=== PATIENT | male | born 1965 | race Caucasian/White ===

== ENCOUNTER 2018-08-19 16:40 | Emergency (ER) | payer OTHER ==
[2018-08-19 17:02] VITALS: TEMP 97.5
--- NOTE | 2018-08-19 17:22 | ED.PDOC ---
History of Present Illness - General Chief Complaint: Back Pain or Injury Stated Complaint: back pain Time Seen by Provider: 08/19/18 17:07 Source: patient Exam Limitations: no limitations - History of Present Illness Initial Comments: the patient is a 53-year-old male presenting to the emergency room secondary to severe low back pain with primarily left lower extremity sciatica. Pain started according to him after a work injury a little more than a month ago. He has seen his primary care doctor for it and he has had a MRI done earlier this week for the pain. 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 He has been receiving Toradol shots with his primary care doctor at this point. He has not yet started any physical therapy. No urinary incontinence. No real weakness of the leg just mainly shooting pains. He does have some mild muscle spasm adjacent to L5 on the left. There is mild tenderness to palpation there as well. No gross deformity. Timing/Duration: unsure Severity: severe Improving Factors: nothing Worsening Factors: movement Associated Symptoms: denies symptoms Allergies/Adverse Reactions: Allergies NO KNOWN ALLERGY Allergy (Verified 10/07/15 17:45) Home Medications: Ambulatory Orders Alprazolam [Xanax] 1 mg PO DAILY 10/07/15 Levetiracetam [Keppra] 500 mg PO BID #28 tab 10/07/15 Cyclobenzaprine HCl [Flexeril] 5 mg PO TID PRN #30 tab 08/19/18 Gabapentin 300 mg PO Q8HR #30 cap 08/19/18 predniSONE [Prednisone] 20 mg PO DAILY #5 tab 08/19/18 Review of Systems - Review of Systems Constitutional: States: no symptoms reported EENTM: States: no symptoms reported Respiratory: States: no symptoms reported Cardiology: States: no symptoms reported Gastrointestinal/Abdominal: States: no symptoms reported Genitourinary: States: no symptoms reported Musculoskeletal: States: back pain Skin: States: no symptoms reported Neurological: States: see HPI, paresthesia Endocrine: States: no symptoms reported All other Systems: No Change from Baseline Past Medical History (General) - Patient Medical History Hx Diabetes: No - Vaccination History Hx Tetanus, Diphtheria Vaccination: Yes - Within last 5 years Hx Influenza Vaccination: No Hx Pneumococcal Vaccination: No - Social History Hx Alcohol Use: Yes - occ. Hx Substance Use: No Hx Substance Use Treatment: No Hx Depression: No - Triage Comment ED Triage Comment: Patient states he has been going heavy lifting at work. Strained his back over a month ago and the pain has been getting worse. Family Medical History - Family History Mother Family History: Unknown Living Status: Still Living Physical Exam - Physical Exam General Appearance: Alert, No apparent distress, Other - poor eye contact. Eye Exam: bilateral normal Ears, Nose, Throat: hearing grossly normal Respiratory: no respiratory distress, no accessory muscle use Cardiovascular/Chest: normal peripheral pulses, no edema Peripheral Pulses: radial,right: 2+, radial,left: 2+ Rectal Exam: deferred Back Exam: other - see history present illness. The patient is very tall and thin. 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 No obvious bruising. Comments: Vital Signs - 24 hr 08/19/18 08/19/18 16:40 17:01 Temperature 97.5 F L Pulse Rate [ 103 H monitor] Respiratory 20 20 Rate Blood Pressure 153/100 [Left Arm] O2 Sat by Pulse 99 Oximetry Progress - Progress Progress: 08/19/18 17:24 the patient's a 53-year-old male presenting to the emergency room with low back pain of more than a month's duration with left lower extremity sciatica. he does not appear to have any loss of sensation or weakness.. Pain does appear to be fairly severe. No incontinence though he has had an accident secondary to not being able to get to the bathroom in time. This is apparently due to a work-related injury. 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 Minimal canal stenosis. The patient has missed the last 2 days of work due to pain and he will likely need to miss the rest of the week. The patient is going to be placed on gabapentin for neuropathic pain and prednisone for the next 5 days as well to help reduce inflammation. He can apply topical heat in the form of icy hot or Biofreeze over the area as well as a heat pad. He will also be written for some Flexeril for as needed use to help reduce any muscle spasm of the paraspinal muscles that may be making the sciatica worse. He does need follow back up with his primary care doctor towards the end of the week to see if he can be cleared to resume work with at least some restrictions. His symptoms do seem to be fairly severe. If he is not making progress, then physical therapy or neurosurgery evaluation may be warranted in the near future. 08/19/18 17:32 Departure - Departure Clinical Impression: Sciatica associated with disorder of lumbar spine Disposition: Discharge to Home or Self Care Condition: Fair Departure Forms: ED Discharge - Pt. Copy, Patient Portal Self Enrollment Instructions: DI for Back Pain With Sciatica Diet: regular diet Activity: other Referrals: HERMELINDO FLORES [Primary Care Provider] - 1-5 Days Prescriptions: Gabapentin 300 mg PO Q8HR #30 cap Cyclobenzaprine HCl [Flexeril] 5 mg PO TID PRN #30 tab PRN Reason: Muscle Spasms predniSONE [Prednisone] 20 mg PO DAILY #5 tab Home Medications: Ambulatory Orders Alprazolam [Xanax] 1 mg PO DAILY 10/07/15 Levetiracetam [Keppra] 500 mg PO BID #28 tab 10/07/15 Cyclobenzaprine HCl [Flexeril] 5 mg PO TID PRN #30 tab 08/19/18 Gabapentin 300 mg PO Q8HR #30 cap 08/19/18 predniSONE [Prednisone] 20 mg PO DAILY #5 tab 08/19/18 Additional Instructions: the patient's a 53-year-old male presenting to the emergency room with low back pain of more than a month's duration with left lower extremity sciatica. This is apparently due to a work-related injury. 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 Minimal canal stenosis. The patient has missed the last 2 days of work due to pain and he will likely need to miss the rest of the week. The patient is going to be placed on gabapentin for neuropathic pain and prednisone for the next 5 days as well to help reduce inflammation. He can apply topical heat in the form of icy hot or Biofreeze over the area as well as a heat pad. He will also be written for some Flexeril for as needed use to help reduce any muscle spasm of the paraspinal muscles that may be making the sciatica worse. He does need follow back up with his primary care doctor towards the end of the week to see if he can be cleared to resume work with at least some restrictions. His symptoms do seem to be fairly severe. If he is not making progress, then physical therapy or neurosurgery evaluation may be warranted in the near future. he does need to be careful with the Flexeril and the gabapentin as they can be increasingly sedating when added on top of his routine home medications.
[2018-08-19 17:29] VITALS: BP 155/96; O2SAT 100
[2018-08-19] MEDS ORDERED: HYDROcodone 7.5MG/APAP 325MG 1 EA TAB PO ONE (17:29)
[2018-08-19] MEDS ORDERED: GABAPENTIN 300 MG CAP PO ONE (17:29)
[2018-08-19] MEDS ORDERED: predniSONE 20 MG TAB PO ONE (17:29)
== END 2018-08-19 17:45 | disposition home or self-care (01) ==
LOC: ER 16:40
DX: M54.42 Lumbago with sciatica, left side (principal); M48.061 Spinal stenosis, lumbar region without neurogenic claudication; Z87.828 Personal history of other (healed) physical injury and trauma

== ENCOUNTER 2018-08-23 00:31 | Emergency (ER) | payer OTHER ==
--- NOTE | 2018-08-23 00:53 | ED.PDOC ---
History of Present Illness - General Chief Complaint: General Stated Complaint: leg weakness Time Seen by Provider: 08/23/18 00:49 Exam Limitations: intoxication - alcohol - History of Present Illness Initial Comments: Julio Buckley 53 y/o male under police custody after he was booked for DWI and was being brought [facility] complained that his legs are weak.event security officer stated he is able to ambulate.No history of accidental fall or head injuries. Timing/Duration: 1-3 hours Severity: mild Improving Factors: nothing Worsening Factors: nothing Associated Symptoms: other - drunk Allergies/Adverse Reactions: Allergies NO KNOWN ALLERGY Allergy (Verified 10/07/15 17:45) Home Medications: Ambulatory Orders Alprazolam [Xanax] 1 mg PO BID 10/07/15 Cyclobenzaprine HCl [Flexeril] 5 mg PO TID PRN #30 tab 08/19/18 Gabapentin 300 mg PO Q8HR #30 cap 08/19/18 predniSONE [Prednisone] 20 mg PO DAILY #5 tab 08/19/18 Review of Systems - Review of Systems Neurological: States: see HPI, weakness - both legs as reported by patien but able to stand on both legs w/o falling and able to sit on the exam table All other Systems: Reviewed and Negative, No Change from Baseline Past Medical History (General) - Patient Medical History Hx Diabetes: No - Vaccination History Hx Tetanus, Diphtheria Vaccination: Yes - Within last 5 years Hx Influenza Vaccination: No Hx Pneumococcal Vaccination: No - Social History Hx Alcohol Use: Yes - occ. Hx Substance Use: No Hx Substance Use Treatment: No Hx Depression: No Family Medical History - Family History Mother Family History: Unknown Living Status: Still Living Physical Exam - Physical Exam General Appearance: Alert, Comfortable, No apparent distress, Other - alcoholic breath Eye Exam: bilateral normal Ears, Nose, Throat: hearing grossly normal, normal ENT inspection, normal pharynx Neck: non-tender, supple, normal inspection Respiratory: chest non-tender, lungs clear, normal breath sounds Cardiovascular/Chest: normal peripheral pulses, regular rate, rhythm, no murmur Peripheral Pulses: radial,right: 2+, radial,left: 2+ Gastrointestinal/Abdominal: normal bowel sounds, non tender, soft Back Exam: no CVA tenderness, no vertebral tenderness Extremity: no pedal edema, no calf tenderness Neurologic: alert - talking to police officers DTR: 2+: Brachioradialis, left, Brachioradialis, right, Patellar, left, Patellar , right Skin Exam: normal color, warm/dry Progress - Progress Progress: 08/23/18 00:59 Vital Signs - 8 hr 08/23/18 00:46 Temperature 97.9 F Pulse Rate [ 100 H left] Respiratory 20 Rate Blood Pressure 140/90 [left] O2 Sat by Pulse 98 Oximetry 08/23/18 01:01 event security officer stated no need for ETOH level just medical clearance Departure - Departure Clinical Impression: Medical clearance for incarceration, Alcohol ingestion Time of Disposition: 01:00 Disposition: Skilled Nursing Condition: Fair Departure Forms: ED Discharge - Pt. Copy, Patient Portal Self Enrollment Referrals: HERMELINDO FLORES [Primary Care Provider] - 1-2 Weeks Home Medications: Ambulatory Orders Alprazolam [Xanax] 1 mg PO BID 10/07/15 Cyclobenzaprine HCl [Flexeril] 5 mg PO TID PRN #30 tab 08/19/18 Gabapentin 300 mg PO Q8HR #30 cap 08/19/18 predniSONE [Prednisone] 20 mg PO DAILY #5 tab 08/19/18
[2018-08-23 00:55] VITALS: BP 140/90; TEMP 97.9; O2SAT 98
== END 2018-08-23 01:15 ==
LOC: ER 00:31
DX: Z02.89 Encounter for other administrative examinations (principal); F10.99 Alcohol use, unspecified with unspecified alcohol-induced disorder; R29.898 Other symptoms and signs involving the musculoskeletal system

== ENCOUNTER 2020-03-18 23:46 | Emergency (ER) | payer BC ==
--- NOTE | 2020-03-19 00:05 | ED.PDOC ---
History of Present Illness - General Chief Complaint: Neuro Symptoms/Deficits Time Seen by Provider: 03/19/20 00:01 Additional Information: Patient is a 54-year-old male who presents to the ED via EMS with a chief complaint of altered mental status. Per EMS, patient was at a convenience store acting strangely when a bystander called 911. Patient is too confused to provide any medical history himself. EMS indicates they know patient well and that he is a heavy alcohol abuser and suspects EtOH intoxication. History is otherwise unknown known at this time. - History of Present Illness Allergies/Adverse Reactions: Allergies NO KNOWN ALLERGY Allergy (Verified 10/07/15 17:45) Home Medications: Ambulatory Orders Alprazolam [Xanax] 1 mg PO BID 10/07/15 Cyclobenzaprine HCl [Flexeril] 5 mg PO TID PRN #30 tab 08/19/18 Gabapentin 300 mg PO Q8HR #30 cap 08/19/18 predniSONE [Prednisone] 20 mg PO DAILY #5 tab 08/19/18 Review of Systems - Review of Systems Unable to Obtain Due To: condition Past Medical History (General) - Patient Medical History Hx Dementia: No Hx Thyroid Disease: No Hx Diabetes: No Hx MRSA: No - Vaccination History Hx Tetanus, Diphtheria Vaccination: Yes - Within last 5 years Hx Influenza Vaccination: No Hx Pneumococcal Vaccination: No - Social History Hx Alcohol Use: Yes - occ. Hx Substance Use: No Hx Substance Use Treatment: No Hx Depression: No Family Medical History - Family History Mother Family History: Unknown Living Status: Still Living Physical Exam - Physical Exam General Appearance: Agitated, Alert, Unkempt ENT Exam: normal ENT inspection Neck: non-tender, normal inspection Respiratory: chest non-tender, lungs clear, normal breath sounds, no respiratory distress, no accessory muscle use Cardiovascular/Chest: normal peripheral pulses, regular rate, rhythm, no edema, no gallop, no JVD, no murmur Peripheral Pulses: radial,right: 2+, radial,left: 2+ Gastrointestinal/Abdominal: normal bowel sounds, non tender, soft Back Exam: normal inspection Extremities Exam: non-tender, normal range of motion, no evidence of injury Mental Status: other - Patient is oriented to person only. He is not oriented to place or time. Patient follows very simple commands only and is grossly confused and answers most questions incorrectly or inappropriately. buffet attendant Exam: other - Patient's cranial nerves are grossly normal with no facial droop. Motor/Sensory: other - Patient moves all extremities. Skin Exam: normal color, warm/dry Progress - Progress Progress: 03/19/20 00:08 Differential diagnosis includes but is not limited to alcohol intoxication, substance abuse, closed head injury, delirium 03/19/20 01:11 Patient reexamined and he is much improved at this time. Patient is now awake alert and conversant. He is able to answer questions appropriately and he is oriented x3 now. He indicates that his father will pick him up and take him home if he is dismissed from the hospital. Patient denies illicit substance use tonight. Patient's labs are essentially unremarkable and his blood alcohol level is not excessively elevated. Source of patient's confusion is unknown but clinically I do not suspect infection. Vital signs stable, patient is NAD and looks clinically well and I believe is safe for discharge with outpatient follow-up. Follow-up instructions, discharge instructions and return to ED precautions discussed with patient. Patient voices understanding and willingness to comply with instructions. All laboratory and radiographic results have been discussed with the patient, and all questions answered. Patient is happy with plan. - EKG/XRAY/CT Comments: EKG: Normal sinus rhythm, rate 85, normal axis, normal QRS, normal ST and T Departure - Departure Clinical Impression: Altered mental state Qualifiers: Altered mental status type: delirium Qualified Code(s): R41.0 - Disorientation, unspecified Time of Disposition: 01:13 Disposition: Discharge to Home or Self Care Condition: Fair Departure Forms: ED Discharge - Pt. Copy, Patient Portal Self Enrollment Instructions: DI for Altered Mental Status Activity: increase activity as tolerated Referrals: HERMELINDO FLORES [Primary Care Provider] - 1-2 Days Home Medications: Ambulatory Orders Alprazolam [Xanax] 1 mg PO BID 10/07/15 Cyclobenzaprine HCl [Flexeril] 5 mg PO TID PRN #30 tab 08/19/18 Gabapentin 300 mg PO Q8HR #30 cap 08/19/18 predniSONE [Prednisone] 20 mg PO DAILY #5 tab 08/19/18
[2020-03-19] MEDS: SODIUM CHLORIDE 0.9% 1000ML 1,000 ML IVS ONE (00:07)
[2020-03-19] MEDS: FOLIC ACID INJ 5 MG/ML VIAL IV ONE (00:47)
[2020-03-19] MEDS: THIAMINE HCL INJ 100 MG/ML VIAL IV ONE (00:48)
--- NOTE | 2020-03-19 00:49 | CT ---
CLINICAL HISTORY: AMS COMPARISON: None. TECHNIQUE: CT HEAD WITHOUT IV CONTRAST on 03/19/2020 12:01 AM CDT This exam was performed according to our departmental dose-optimization program, which includes automated exposure control, adjustment of the mA and/or kV according to patient size and/or use of iterative reconstruction technique. FINDINGS: There is no acute hemorrhage, mass effect or midline shift. Espinoza-white differentiation is preserved. There is no hydrocephalus. There is no significant volume loss for age. The calvarium is intact. Orbits and globes are unremarkable. The paranasal sinuses are clear. Mastoid air cells are clear. IMPRESSION: No acute intracranial findings. Electronically signed by: Rolando Amaya MD 03/19/2020 12:47 AM CDT
--- NOTE | 2020-03-19 00:52 | RAD ---
CLINICAL HISTORY: AMS COMPARISON: None. TECHNIQUE: XR CHEST 1 VIEW 03/19/2020 12:01 AM CDT FINDINGS: Cardiac silhouette is normal in size. Lungs are clear without consolidation, atelectasis, mass or edema. There is no pleural effusion. There is no pneumothorax. There are no acute osseous findings. IMPRESSION: Clear lungs. Electronically signed by: Rolando Amaya MD 03/19/2020 12:50 AM CDT
[2020-03-19 01:25] VITALS: TEMP 98.2
[2020-03-19 01:41] VITALS: BP 134/102; O2SAT 95
== END 2020-03-19 03:13 | disposition home or self-care (01) ==
LOC: ER 23:46
DX: R41.0 Disorientation, unspecified (principal)